=== PATIENT | female | born 1965 | race Asian ===

== ENCOUNTER 2017-11-24 12:57 | Emergency (ER) | payer OTHER ==
[~2017-11-24] VITALS: Ht 152.4 cm; Wt 55.8 kg
[2017-11-24 13:04] VITALS: BP 137/66
--- NOTE | 2017-11-24 13:04 | NUR ---
Patient transferred to bed 3 via wheelchair by tech, accompanied by family. RN evaluating patient at bedside.
--- NOTE | 2017-11-24 13:09 | NUR ---
PT. PROVIDED URINE. DR. LOPEZ AWARE
--- NOTE | 2017-11-24 13:15 | NUR ---
PT. BIB SON TO THE ED W/ C/O DIZZINESS X 3 DAYS. PT. IS AAOX4. RR EVEN AND UNLABORED. SKIN WARM AND DRY TO TOUCH. 6/10 ON TOP OF HEAD THAT IS NON RADIATING AND DESCRIBED DULL AND HURTS WHEN THE DIZZINESS HAPPENS. PT. DENIES ANY FALLS. PUPILS EQUAL, ROUND AND REACTIVE TO LIGHT. PT. ABLE TO FOLLOW COMMANDS. DENIES CHEST PAIN, DENIES SOB, DENIES COUGH, PT. VOMITED ONCE YESTERDAY BUT NOT TODAY, PT. DOES NOT FEEL NAUSEOUS AT THIS TIME. SON AT BEDSIDE. Josep ROMEO NOTIFIED. WILL CONTINUE TO MONITOR.
--- NOTE | 2017-11-24 13:20 | NUR ---
Dr. Soria evaluating patient at bedside.
--- NOTE | 2017-11-24 13:22 | NUR ---
PT. UNABLE TO PROVIDE URINE AT THIS TIME, PT. GIVEN A CUP OF WATER. SON AT BEDSIDE. WILL CONTINUE TO MONITOR.
[2017-11-24] MEDS ORDERED: MECLIZINE 25 MG TAB PO ONE (13:30)
[2017-11-24] MEDS ORDERED: KETOROLAC 60 MG/2 ML VIAL IM ONE (14:00)
[2017-11-24 14:28] VITALS: BP 115/70
--- NOTE | 2017-11-24 14:28 | NUR ---
Patient discharged with v/s stable. Written and verbal after care instructions given and explained. Patient alert, oriented and verbalized understanding of instructions. Ambulatory with steady gait. All questions addressed prior to discharge. ID band removed. Patient advised to follow up with PMD. Rx of MECLIZINE, ZOFRAN, AND MOTRIN given. Patient educated on indication of medication including possible reaction and side effects. Opportunity to ask questions provided and answered.
== END 2017-11-24 14:28 | disposition home or self-care (01) ==
LOC: MED 12:57
DX: H81.10 Benign paroxysmal vertigo, unspecified ear (principal); Z90.89 Acquired absence of other organs
CPT/HCPCS: 81002; 96372; 99283; J1885; J8597

== ENCOUNTER 2018-02-02 09:58 | Emergency (ER) | payer OTHER ==
[~2018-02-02] VITALS: Ht 157.5 cm; Wt 53.1 kg
[2018-02-02 10:10] VITALS: BP 115/78
[2018-02-02] MEDS ORDERED: LACTULOSE 20 GM/30 ML UDC PO ONE (11:10)
[2018-02-02] MEDS ORDERED: diphenhydrAMINE 50 MG/ML VIAL IM ONE (11:10)
[2018-02-02] MEDS ORDERED: MORPHINE SULFATE 2 MG/ML SYR IM ONE (11:10)
[2018-02-02 11:57] VITALS: BP 121/64
== END 2018-02-02 11:56 | disposition home or self-care (01) ==
LOC: MED 09:58
DX: G89.18 Other acute postprocedural pain (principal); K62.89 Other specified diseases of anus and rectum
CPT/HCPCS: 96372; 99284; J1200; J2270

== ENCOUNTER 2023-06-10 21:41 | Emergency (ER) | payer OTHER ==
[~2023-06-10] VITALS: Ht 160 cm; Wt 59.0 kg
[2023-06-10 22:11] VITALS: BP 110/67; PULSE 73; RESP 20; TEMP 98; O2SAT 98
[2023-06-10 23:45] VITALS: BP 110/67; PULSE 73; RESP 20; TEMP 98; O2SAT 98
[2023-06-11] MEDS ORDERED: IBUP-2213 PO (01:13)
[2023-06-11] MEDS ORDERED: CEPH-588 PO (01:13)
== END 2023-06-11 01:24 | disposition home or self-care (01) ==
LOC: MED 21:41
DX: H00.034 Abscess of left upper eyelid (principal); R30.0 Dysuria
CPT/HCPCS: 81002; 81025; 99283